=== PATIENT | male | born 1965 | race Caucasian/White ===

== ENCOUNTER 2023-11-02 23:33 | Emergency (ER) | payer OTHER ==
[~2023-11-02] VITALS: Ht 182.9 cm; Wt 85.0 kg
[~2023-11-02 23:33] MED LIST: ASPIRIN EC81 MG PO; CENTRUM SILVER1 EAC3 PO; CVS OMEGA-3 KR1 EACH PO; FEXOFENADINE H180 MG PO; LORAZEPAM1 MG PO; MELATONIN5 M2 PO; METAMUCIL0.4 GM PO; MOTRIN IB200 MG PO; ONDANSETRON ODT8 MG PO; PERCOCET 5-3251 EACH PO; SERTRALINE HCL50 MG PO; SINGULAIR10 MG PO; SUDAFED 12 HOU120 MG PO; TYLENOL EXTRA500 MG PO; VITAMIN D5000 UNIT PO
[2023-11-02] MEDS ORDERED: VALACYCLOVIR1000 MG PO (23:45)
[2023-11-02] MEDS ORDERED: VALACYCLOVIR HCL 500 MG TAB PO ONE (23:45)
[2023-11-02 23:53] VITALS: BP 145/101
== END 2023-11-02 23:53 | disposition home or self-care (01) ==
LOC: ED 23:33
DX: B02.9 Zoster without complications (principal)
CPT/HCPCS: 99282